=== PATIENT | female | born 2000 ===

== ENCOUNTER 2018-07-17 23:53 | Emergency (ER) | payer SELFPAY ==
[2018-07-18] VITALS: TEMP 98.2; O2SAT 100
--- NOTE | 2018-07-18 01:15 | ED PDOC ---
HPI: CCC, URI, Sore Throat Time Seen by Provider: 07/18/18 01:03 Chief Complaint (Nursing): Flu-like Symptoms Chief Complaint (Provider): cold-symptoms History Per: Patient, Family History/Exam Limitations: no limitations Onset/Duration Of Symptoms: Days (3) Current Symptoms Are (Timing): Still Present Associated Symptoms: Chills, Cough, Sputum, Nasal Congestion Additional Complaint(s): 18 y/o female presents for evaluation of cough and congestion x 3 days. Associated subjective fever yesterday morning, last dose of Tylenol taken at that time. Patient reports pain in upper back and mid chest when coughing, with + sputum production. Denies ear pain, nausea/vomiting, shortness of breath, palpitations, abdominal pain, urinary symptoms, vaginal bleeding/discharge. Patient states she had a + test at home 2 weeks ago but never followed up with it. Past Medical History Reviewed: Historical Data, Nursing Documentation, Vital Signs Vital Signs: Last Vital Signs Temp 98.2 F 07/17/18 23:56 Pulse 83 07/17/18 23:56 Resp 17 07/17/18 23:56 BP 130/84 07/17/18 23:56 Pulse Ox 100 07/17/18 23:56 - Medical History PMH: No Chronic Diseases - Surgical History Surgical History: No Surg Hx - Family History Family History: States: Unknown Family Hx - Living Arrangements Living Arrangements: With Family - Immunization History Hx Tetanus Toxoid Vaccination: No Hx Influenza Vaccination: Yes Hx Pneumococcal Vaccination: Yes - Home Medications Home Medications: Ambulatory Orders Medication Instructions Recorded Albuterol HFA [Ventolin HFA 90 1 puff IH Q4 PRN #1 inh 07/18/18 mcg/actuation (8 g)] Fluticasone Nasal [Flonase] 1 actuation NS BID #1 bottle 07/18/18 guaiFENesin/Dextromethorphan 1 - 2 tab PO Q12 PRN #20 tab 07/18/18 [guaiFENesin/DM 600-30 mg] - Allergies Allergies/Adverse Reactions: Allergies Allergy/AdvReac Type Severity Reaction Status Date / Time No Known Allergies Allergy Verified 07/17/18 23:57 Review of Systems ROS Statement: Except As Marked, All Systems Reviewed And Found Negative ENT: Positive for: Nose Congestion Respiratory: Positive for: Cough Physical Exam - Reviewed Nursing Documentation Reviewed: Yes Vital Signs Reviewed: Yes - Physical Exam Appears: Positive for: Well, Non-toxic, No Acute Distress Head Exam: Positive for: ATRAUMATIC, NORMAL INSPECTION, NORMOCEPHALIC Skin: Positive for: Normal Color Eye Exam: Positive for: Normal appearance ENT: Positive for: Nasal Congestion Cardiovascular/Chest: Positive for: Regular Rate, Rhythm Respiratory: Positive for: Normal Breath Sounds Gastrointestinal/Abdominal: Positive for: Normal Exam Back: Positive for: Normal Inspection Extremity: Positive for: Normal ROM Neurologic/Psych: Positive for: Alert, Oriented - Laboratory Results Urine POC: Negative - ECG O2 Sat by Pulse Oximetry: 100 - Radiology X-Ray: Viewed By [facility] X-Ray Interpretation: No Acute Disease - Progress ED Course And Treament: -upreg -rapid strep -influenza -cxr -duoneb On re-eval, patient states she is feeling better Patient educated on findings, discharged with rx Albuterol HFA,Flonase, Mucinex- DM Advised fluids, rest Follow up PMD within 2-3 days Return precautions given Disposition - Clinical Impression Clinical Impression: Upper respiratory infection - Patient ED Disposition Is Patient to be Admitted: No Counseled Patient/Family Regarding: Studies Performed, Diagnosis, Need For Followup, Rx Given - Disposition Referrals: [facility] [Outside] Disposition: Routine/Home Disposition Time: 03:00 Condition: IMPROVED Prescriptions: Albuterol HFA [Ventolin HFA 90 mcg/actuation (8 g)] 1 puff IH Q4 PRN #1 inh PRN Reason: Wheezing Fluticasone Nasal [Flonase] 1 actuation NS BID #1 bottle guaiFENesin/Dextromethorphan [guaiFENesin/DM 600-30 mg] 1 - 2 tab PO Q12 PRN #20 tab PRN Reason: Cough And Congestion Instructions: Viral Upper Respiratory Infection, Adult (DC) Print Language: OCCITAN
[2018-07-18] MEDS ORDERED: Albuterol-Ipratrop 3 mg / 0.5 (3 ml) UD IH STA (02:18)
[2018-07-18 03:20] VITALS: BP 119/72; PULSE 79; RESP 16
--- NOTE | 2018-07-18 10:25 | RAD ---
Date of service: 07/18/2018 HISTORY: cough COMPARISON: No prior. TECHNIQUE: Chest PA and lateral FINDINGS: LINES AND TUBES: None. LUNG AND PLEURA: The lungs are well inflated and clear. No pleural effusion or pneumothorax. HEART AND MEDIASTINUM: The heart is not enlarged. No aortic atherosclerotic calcification present. The hilar and mediastinal contours are within normal limits. SKELETAL STRUCTURES: The bony structures are within normal limits for the patient's age. VISUALIZED UPPER ABDOMEN: Normal. OTHER FINDINGS: None. IMPRESSION: No active pulmonary disease.
== END 2018-07-18 03:20 | disposition home or self-care (01) ==
LOC: H.ER 23:53
DX: J06.9 Acute upper respiratory infection, unspecified (principal)